=== PATIENT | female | born 1950 | race Caucasian/White ===

== ENCOUNTER 2022-02-07 05:43 | Outpatient (CLI) | payer BC ==
[~2022-02-07] VITALS: Ht 180.3 cm; Wt 89.4 kg
[2022-02-07] MEDS ORDERED: LISI10TA25 PO (15:09)
== END 2022-02-07 15:21 | disposition home or self-care (01) ==
LOC: PREOP 05:43
PROVIDERS: ATTEND Surgery
DX: Z01.818 Encounter for other preprocedural examination (principal)

== ENCOUNTER 2022-02-11 10:05 | Day surgery (SDC) | payer BC ==
[~2022-02-11] VITALS: Ht 180 cm; Wt 89.4 kg
[~2022-02-11 10:05] MED LIST: LISI10TA25 PO
[2022-02-11] MEDS ORDERED: LACTATED RINGERS 1,000 ML IV STA (10:08)
[2022-02-11] MEDS ORDERED: HURRICAINE EXT TUBE (BENZOCAINE) XX PRN (10:15)
[2022-02-11 10:30] VITALS: BP 193/107
--- NOTE | 2022-02-11 11:36 | Progress Note-Pre Operative ---
Pre-Operative Progress Note Date of Available H&P: Feb 05, 2022 Date H&P Reviewed: Feb 11, 2022 Time H&P Reviewed: 09:28 History & Physical: H&P Reviewed, Patient Examed, No changes noted Pre-Operative Diagnosis: GERD, Screening JAVIER TIMMONS DO Feb 11, 2022 11:36
[2022-02-11] MEDS ORDERED: PROPOFOL INJECTION 50 ML IV ONE (11:42)
[2022-02-11 12:27] VITALS: BP 76/52
[2022-02-11 12:32] VITALS: BP 72/47
[2022-02-11 12:37] VITALS: BP 99/51
[2022-02-11 12:40] VITALS: BP 99/51
--- NOTE | 2022-02-11 13:07 | Anesthesia-General Post-Op ---
MAC Patient Condition Mental Status/LOC: Same as Preop Cardiovascular: Satisfactory Nausea/Vomiting: Absent Respiratory: Satisfactory Pain: Controlled Complications: Absent Post Op Complications Complications None Follow Up Care/Instructions Patient Instructions None needed. Anesthesiology Discharge Order Discharge Order Patient is doing well, no complaints, stable vital signs, no apparent adverse anesthesia problems. No complications reported per nursing. ERASTO MACKAY CRNA Feb 11, 2022 13:07
--- NOTE | 2022-02-11 13:12 | Progress Note-Post Operative ---
Post-Operative Progess Note Surgeon (s)/Aquatic Laborer (s) Surgeon JAVIER TIMMONS DO Aquatic Laborer: Colleen Senior, MSIII Pre-Operative Diagnosis GERD, Screening Post-Operative Diagnosis Gastritis Hiatal hernia Polyp Diverticula int hemorrhoids Procedure & Operative Findings Date of Procedure 02/11/22 Procedure Performed/Findings EGD with bx Colonoscopy with hot biopsy PROCEDURE NOTE: After informed consent was obtained, the patient was brought to the endoscopy suite, placed in bed in left lateral decubitus position. She was administered IV sedation by the WARP TESTER who then monitored vitals the entire time, heart rate, blood pressure and pulse ox and the scope was inserted down the mouth through the esophagus into the stomach. On the way down, noted some mild esophagitis, took a picture, pushed into the stomach, pushed past the antrum into the duodenum. Duodenum looked good. Pulled back and did a biopsy of antrum, then retroflexed the scope, saw small hiatal hernia, took a picture of this and then pulled the scope into the GE junction, took another picture of the hiatal hernia and then did a biopsy of the GE junction. Pushed the scope back into the stomach, suctioned all the air out of the stomach. At this point pulled the scope up the esophagus and out the mouth. Switched camera, switched gloves, went down below and started the colonoscopy. Pushed all the way to about 150 cm and pushed into the cecum, took a picture of appendiceal orifice and noted the ileocecal valve. Then slowly withdrew the scope insufflating to look circumferentially at the vazquez starting in the cecum, up the ascending colon to the hepatic flexure, then down the transverse colon to the splenic flexure, into the descending colon down in the sigmoid and then into the rectum. Found a polyp here and elected to do a hot biopsy of this. Finally into the rectal vault and retroflexed the scope. Took picture of the internal hemorrhoids. The patient tolerated the procedure and she recovered in the endoscopy suite. Recommended for repeat colonoscopy in 5 years Anesthesia Type IV sedation by WARP TESTER Estimated Blood Loss Estimated blood loss (mL): scant Specimens/Packing Specimens Removed antral bx GE jxn bx rectal polyp JAVIER TIMMONS DO Feb 11, 2022 13:12
--- NOTE | 2022-02-11 13:13 | Endoscopy Discharge Instruct ---
Endo Procedure/Findings Findings 1.: Gastritis 2.: Hiatal Hernia 3.: Polyp 4.: Diverticulosis, Internal Hemorrhoids Discharge Instructions - Activity: You might feel a little sleepy until tomorrow. This is due to the medicine you received to relax you. Until tomorrow, you should: NOT drive a car, operate machinery or power tools. NOT drink any alcoholic beverages. NOT make any important decisions or sign importortant papers. Do not return to work until tomorrow, unless otherwise instructed. Resume previous activities tomorrow. Diet: Start by taking liquids. If you tolerate liquids, advance to solid food. 1.: EGD in 3 years 2.: Colonscopy in 5 years Notify Physician - If you experience excessive bleeding, unusual abdominal pain, fever, or chest pain, contact your doctor immediately. JAVIER TIMMONS DO Feb 11, 2022 13:12
[2022-02-11 13:25] VITALS: BP 99/51
== END 2022-02-11 13:38 | disposition home or self-care (01) ==
LOC: ENDO 10:05
PROVIDERS: ATTEND Surgery
DX: Z12.11 Encounter for screening for malignant neoplasm of colon (principal); K29.70 Gastritis, unspecified, without bleeding; K44.9 Diaphragmatic hernia without obstruction or gangrene; K62.1 Rectal polyp; K57.30 Diverticulosis of large intestine without perforation or abscess without bleeding; K64.8 Other hemorrhoids; K31.89 Other diseases of stomach and duodenum; K21.00 Gastro-esophageal reflux disease with esophagitis, without bleeding; K80.10 Calculus of gallbladder with chronic cholecystitis without obstruction
CPT/HCPCS: 88305

== ENCOUNTER 2023-02-06 16:47 | Emergency (ER) | payer BC, MEDICARE, OTHER ==
[~2023-02-06] VITALS: Ht 182 cm; Wt 92.4 kg
--- NOTE | 2023-02-06 16:52 | ED General ---
General Stated Complaint: ELEV BP History of Present Illness Date Seen by Provider: Feb 06, 2023 Time Seen by Provider: 16:52 Initial Comments 72-year-old female presents because she was concerned about her blood pressure being elevated today. She called her primary care provider and was told to take an additional lisinopril. Patient is extremely anxious. Patient reports that she has been having Allergies and Home Medications Allergies Coded Allergies: No Known Drug Allergies (Unverified , 02/07/22) Patient Home Medication List Home Medication List Reviewed: Yes Lisinopril (Lisinopril) 10 Mg Tablet, 10 MG PO DAILY, (Reported) Entered as Reported by: ENOCH RHOADES on 02/07/22 1027 Review of Systems Review of Systems Constitutional: see HPI; No dizziness, No fever Respiratory: No cough Cardiovascular: no symptoms reported; No chest pain Genitourinary: no symptoms reported Musculoskeletal: back pain Skin: no symptoms reported Psychiatric/Neurological: No Symptoms Reported Past Bkyhmxz-Vfeviv-Ozzjmb Hx Immunizations Up To Date First/Initial COVID19 Vaccinat: 2020 Second COVID19 Vaccination Herbert: 2021 Third COVID19 Vaccination Date: 2020 Past Medical History Surgeries: Yes Orthopedic Respiratory: No Cardiac: Yes Hypertension Neurological: No Genitourinary: No Gastrointestinal: Yes (BOWEL "CHANGES", HEP C MEDS JUST COMPLETED) Hepatitis Musculoskeletal: Yes (RECENT "FALL AT HOME") Endocrine: No HEENT: Yes (GLASSES) Cancer: No Psychosocial: Yes Depression Integumentary: No Blood Disorders: No Physical Exam Vital Signs Vital Signs - First Documented 02/06/23 17:04 Temp 35.7 Pulse 72 Resp 18 B/P (MAP) 216/78 (124) Pulse Ox 97 O2 Delivery Room Air Capillary Refill : Height, Weight, BMI Height: '" Weight: lbs. oz. kg; 27.59 BMI Method: General Appearance: Anxious Neck: Non Tender, Supple Respiratory: Lungs Clear, Normal Breath Sounds Cardiovascular: Regular Rate, Rhythm, No Edema Back: Other (tenderness midline, mid thoracici ) Neurologic/Psychiatric: Alert, Oriented x3, No Motor/Sensory Deficits Skin: Normal Color, Warm/Dry Progress/Results/Core Measures Suspected Sepsis SIRS Temperature: Pulse: Respiratory Rate: Laboratory Tests 02/06/23 17:15: White Blood Count 7.7 Blood Pressure / Mean: Laboratory Tests 02/06/23 17:15: Creatinine 0.60, Platelet Count 226, Total Bilirubin 0.4 Results/Orders Lab Results Laboratory Tests Test 02/06/23 17:15 Range/Units White Blood Count 7.7 4.3-11.0 10^3/uL Red Blood Count 4.64 3.80-5.11 10^6/uL Hemoglobin 14.3 11.5-16.0 g/dL Hematocrit 43 35-52 % Mean Corpuscular Volume 93 80-99 fL Mean Corpuscular Hemoglobin 31 25-34 pg Mean Corpuscular Hemoglobin Concent 33 32-36 g/dL Red Cell Distribution Width 12.6 10.0-14.5 % Platelet Count 226 130-400 10^3/uL Mean Platelet Volume 9.6 9.0-12.2 fL Immature Granulocyte % (Auto) 0 % Neutrophils (%) (Auto) 45 42-75 % Lymphocytes (%) (Auto) 44 12-44 % Monocytes (%) (Auto) 7 0-12 % Eosinophils (%) (Auto) 3 0-10 % Basophils (%) (Auto) 1 0-10 % Neutrophils # (Auto) 3.4 1.8-7.8 10^3/uL Lymphocytes # (Auto) 3.4 1.0-4.0 10^3/uL Monocytes # (Auto) 0.6 0.0-1.0 10^3/uL Eosinophils # (Auto) 0.2 0.0-0.3 10^3/uL Basophils # (Auto) 0.1 0.0-0.1 10^3/uL Immature Granulocyte # (Auto) 0.0 0.0-0.1 10^3/uL Sodium Level 141 135-145 MMOL/L Potassium Level 4.1 3.6-5.0 MMOL/L Chloride Level 104 98-107 MMOL/L Carbon Dioxide Level 26 21-32 MMOL/L Anion Gap 11 5-14 MMOL/L Blood Urea Nitrogen 12 7-18 MG/DL Creatinine 0.60 0.60-1.30 MG/DL Estimat Glomerular Filtration Rate 97 BUN/Creatinine Ratio 20 Glucose Level 95 70-105 MG/DL Calcium Level 9.6 8.5-10.1 MG/DL Corrected Calcium 8.5-10.1 MG/DL Magnesium Level 2.3 1.6-2.4 MG/DL Total Bilirubin 0.4 0.1-1.0 MG/DL Aspartate Amino Transf (AST/SGOT) 16 5-34 U/L Alanine Aminotransferase (ALT/SGPT) 10 0-55 U/L Alkaline Phosphatase 149 H 40-136 U/L Troponin I < 0.30 <0.30 NG/ML C-Reactive Protein < 0.30 <0.50 MG/DL Total Protein 7.7 6.4-8.2 GM/DL Albumin 4.6 H 3.2-4.5 GM/DL My Orders Orders - KUMAR,VELIA L DO Lumbar Spine 2 Or 3 View (02/06/23 16:58) Thoracic Spine 3v Ap Lat Swim (02/06/23 16:58) Cbc And Automated Diff (02/06/23 17:06) Comprehensive Metabolic Panel (02/06/23 17:06) Magnesium (02/06/23 17:06) Crp Fs (02/06/23 17:06) Troponin I Fs (02/06/23 17:06) Ekg Tracing (02/06/23 17:06) Monitor-Rhythm Ecg Trace Only (02/06/23 17:06) Ketorolac Injection (Ketorolac Injection (02/06/23 18:03) Orphenadrine Inj (Ed Only) (Orphenadrine (02/06/23 18:03) Vital Signs/I&O 02/06/23 02/06/23 02/06/23 17:04 18:16 18:46 Temp 35.7 Pulse 72 66 Resp 18 18 16 B/P (MAP) 216/78 (124) 226/94 (138) 198/92 Pulse Ox 97 97 97 O2 Delivery Room Air Room Air Room Air Capillary Refill : Progress Note : Progress Note Patient's diagnostic studies were ordered reviewed and interpreted by me. Marlo esposito has no acute or concerning findings on her labs. Patient's EKG shows normal sinus rhythm with an occasional PVC. Ventricular rate 63 NH 170 QRS [address] changes or elevation. Patient is x-rays show compression fractures. These are likely at least 2 months old and may be up to a-year-old as she fell about a year ago and then couple months ago at least 2 months ago. She has no acute injury or trauma at this time. She has no neurologic symptoms. I discussed findings with her. She is also has a lot of stress at home and negative this is causing her low bit of anxiety and anxiousness is also causing her to have a little bit elevated blood pressure. Patient has an appointment with her primary care provider in the morning. I recommend she discuss treatment for her anxiety and depression. She can use topical lidocaine with menthol or Voltaren for her discomfort in her back. Recommend she may try some massage therapy. Patient did have minor elevation of her her blood pressure size in the 220s. I suspect this is likely due to her anxiety. I gave her Toradol and Norflex for the discomfort in her back and let her rest and started coming down significantly into the 180s to 190s. I suspect that will continue to come down as now she is much more relaxed after discussing everything and answered all of her questions. She will take another lisinopril 10 tonight if she feels as needed. She is stable and discharged home. Departure Impression Primary Impression: Back strain Qualified Codes: S39.012A - Strain of muscle, fascia and tendon of lower back, initial encounter Additional Impressions: Closed compression fracture of thoracic vertebra Qualified Codes: S22.000A - Wedge compression fracture of unspecified thoracic vertebra, initial encounter for closed fracture Hypertension Qualified Codes: I10 - Essential (primary) hypertension Anxiousness Disposition: 01 HOME, SELF-CARE Condition: Stable Departure-Patient Inst. Referrals: LEVI LOUIS MD (PCP) Primary Care Physician Patient Instructions: High Blood Pressure ED, Back Muscle Strain (DC), Vertebral compression fracture Add. Discharge Instructions: Please keep your appointment with your primary care provider in the morning. You may take an additional 10 mg of lisinopril tonight and then start taking 20 in the morning. VELIA KUMAR DO Feb 06, 2023 16:52
--- NOTE | 2023-02-06 17:21 | Diagnostic Imaging Report ---
INDICATION: Back pain. EXAMINATION: Thoracic spine. FINDINGS: AP and lateral views of the thoracic spine show anterior wedging of T11 and T7 vertebral bodies. Vertebral alignment is normal. Disc spaces are well maintained. IMPRESSION: Compression fractures at T7 and T11 of indeterminate age. There is no prior study available for comparison. Dictated by: Dictated on workstation # [id number]
[2023-02-06 17:23] LABS: BASOPHILS # (AUTO) 0.1 10^3/uL (0.0-0.1); BASOPHILS % (AUTO) 1 % (0-10); EOSINOPHILS # (AUTO) 0.2 10^3/uL (0.0-0.3); EOSINOPHILS % (AUTO) 3 % (0-10); HEMATOCRIT 43 % (35-52); HEMOGLOBIN 14.3 g/dL (11.5-16.0); LYMPHOCYTES # (AUTO) 3.4 10^3/uL (1.0-4.0); LYMPHOCYTES % (AUTO) 44 % (12-44); MEAN CORPUSCULAR HEMOGLOBIN 31 pg (25-34); MEAN CORPUSCULAR HGB CONC 33 g/dL (32-36); MEAN CORPUSCULAR VOLUME 93 fL (80-99); MEAN PLATELET VOLUME 9.6 fL (9.0-12.2); MONOCYTES # (AUTO) 0.6 10^3/uL (0.0-1.0); MONOCYTES % (AUTO) 7 % (0-12); NEUTROPHILS # (AUTO) 3.4 10^3/uL (1.8-7.8); NEUTROPHILS % (AUTO) 45 % (42-75); PLATELET COUNT 226 10^3/uL (130-400); WHITE BLOOD COUNT 7.7 10^3/uL (4.3-11.0)
--- NOTE | 2023-02-06 17:23 | Diagnostic Imaging Report ---
HISTORY: Low back pain. COMPARISON: None. TECHNIQUE: 3 views of the lumbar spine. FINDINGS: Bone density is diffusely low. There is grade 2-3 anterolisthesis at L5-S1. There is severe facet arthropathy at L4-L5 and L5-S1 with bilateral L5 pars defects. There is trace anterolisthesis at L3-L4. Minimal height loss at the superior endplate of L2 is likely chronic. There does appear to be height loss at the lower thoracic spine which is reported separately. There is irregularity along the interfaces of the spinous processes of L2, L3 and L4, consistent with Baastrup's disease. The sacroiliac joints appear to be patent. IMPRESSION: 1. No acute fracture is seen in the lumbar spine. There are compression deformities in the lower thoracic spine which are age indeterminate. 2. Grade 2-3 anterolisthesis at L5-S1. Marked facet arthropathy in the lower lumbar spine with bilateral L5 pars defects. 3. Findings suggestive of Baastrup's disease. Dictated by: Dictated on workstation # [id number]
[2023-02-06 17:42] LABS: CHLORIDE 104 MMOL/L (98-107); POTASSIUM 4.1 MMOL/L (3.6-5.0); SODIUM 141 MMOL/L (135-145)
[2023-02-06 17:48] LABS: ALANINE AMINOTRANSFERASE 10 U/L (0-55); ALKALINE PHOSPHATASE 149 U/L (40-136); BILIRUBIN,TOTAL 0.4 MG/DL (0.1-1.0); BUN/CREATININE RATIO 20; CALCIUM 9.6 MG/DL (8.5-10.1); CARBON DIOXIDE 26 MMOL/L (21-32); GFR ESTIMATED 97; GLUCOSE 95 MG/DL (70-105); MAGNESIUM 2.3 MG/DL (1.6-2.4)
[2023-02-06 17:49] LABS: ALBUMIN 4.6 GM/DL (3.2-4.5); TOTAL PROTEIN 7.7 GM/DL (6.4-8.2)
[2023-02-06] MEDS ORDERED: ORPHENADRINE 60 MG/2 ML AMP (ED ONLY) IV STA (18:03)
[2023-02-06] MEDS ORDERED: KETOROLAC INJ 30 MG/ML VIAL IVP STA (18:03)
[2023-02-06 18:46] VITALS: BP 198/92
== END 2023-02-06 18:58 | disposition home or self-care (01) ==
LOC: EDUNIT# 16:47 → ER FS 16:48
DX: S22.068A Other fracture of T7-T8 thoracic vertebra, initial encounter for closed fracture (principal); S22.088A Other fracture of T11-T12 vertebra, initial encounter for closed fracture; S39.012A Strain of muscle, fascia and tendon of lower back, initial encounter; I10 Essential (primary) hypertension; F41.9 Anxiety disorder, unspecified; X58.XXXA Exposure to other specified factors, initial encounter
CPT/HCPCS: 36415; 72072; 72100; 80053; 83735; 84484; 85025; 86141; 93005; 93041

== ENCOUNTER → 2023-02-13 | Outpatient (CLI) | payer MEDICARE, OTHER ==
--- NOTE | 2023-02-13 13:27 | Diagnostic Imaging Report ---
TECHNIQUE: Multiplanar multisequence MRI of the thoracic spine was performed without contrast. REASON FOR EXAM: Fall. Mid back pain. COMPARISON: Thoracic spine radiographs on 02/06/2023. FINDINGS: Acute/subacute compression fracture is seen involving the T7 vertebral body with approximately 50% height loss. No bony retropulsion. No other acute fracture is seen in the thoracic spine. Alignment is anatomic. No suspicious focal osseous lesions. The intrinsic signal within the thoracic spinal cord is normal. No evidence of cord expansion. No epidural collections. Small disc bulge is visualized at the T11-T12 level with associated mild spinal canal narrowing and no foraminal narrowing. No large disc bulges or high-grade spinal canal or foraminal stenosis in the thoracic spine. The paraspinal soft tissues are unremarkable. IMPRESSION: 1. Acute/subacute compression fracture involving the T7 vertebral body with approximately 50% height loss and no bony retropulsion. 2. Mild spinal canal narrowing at the T11-T12 level secondary to a small disc bulge. No high-grade spinal canal or foraminal stenosis in the thoracic spine. Dictated by: Dictated on workstation # [id number]
== END ==
LOC: RAD 09:00
PROVIDERS: ATTEND Family Medicine
DX: S22.060A Wedge compression fracture of T7-T8 vertebra, initial encounter for closed fracture (principal); S22.070D Wedge compression fracture of T9-T10 vertebra, subsequent encounter for fracture with routine healing; M51.34 Other intervertebral disc degeneration, thoracic region
CPT/HCPCS: 72146